=== PATIENT | male | born 1940 | race Caucasian/White ===

== ENCOUNTER → 2020-08-26 | Outpatient (CLI) | payer MEDICARE, OTHER ==
--- NOTE | 2020-08-26 12:46 | CT ---
EXAMINATION TYPE: CT angio thor/abd pel aorta DATE OF EXAM: 08/26/2020 COMPARISON: None. HISTORY: Abdominal Aortic aneurysm, without rupture CT DLP: 338.3 mGycm. Automated Exposure Control for Dose Reduction was Utilized. CONTRAST: CTA scan of the thorax, abdomen and pelvis is performed with IV Contrast, patient injected with 100 m L of Isovue 370. Aneurysm protocol with 3-D reconstruction images created on an independent workstati on and reviewed. FINDINGS: Vascular: Satisfactory enhancement of the central pulmonary arteries. Normal three-vessel origin from the aortic arch. Moderate mixed plaque in the thoracic aorta extending into branch vessels. Patent c eliac artery along with SMA that shows moderate narrowing approaching 50%. There is significant narro wing of the left renal artery at its origin due to prominent noncalcified plaque axial images 60 and 61 with reconstitution axial image 62, similar findings seen at origin of right renal artery. Patent GRAHAM not well seen. Moderate to severe plaque extends into the iliac arteries bilaterally where there is pain and left-sided stent graft, significant stenosis proximal right internal carotid artery great er than 50% noted axial image 86. There is moderate to severe plaque in the external iliac arteries b ilaterally with more mild to moderate plaque extending into the femoral arteries bilaterally and bran luke superficial and deep femoral arteries. There is infrarenal abdominal aortic aneurysm measuring 3.9 x 4.3 cm transversely axial image 74 with moderate surrounding peripheral noncalcified plaque. Le ngth of the aneurysm roughly 9 cm on sagittal image 22. Aneurysm does not extend into common iliac ar teries bilaterally. No Linear hypodensity to suggest aortic dissection. LUNGS: Mild chronic parenchymal changes otherwise lungs are clear. There is no concerning parenchymal mass or nodule identified. There is no pleural effusion or pneumothorax seen. The tracheobronchia l tree is patent. MEDIASTINUM: There are no greater than 1 cm hilar or mediastinal lymph nodes. Post-CABG changes with mediastinal clips and sternal wires. No cardiomegaly or pericardial effusion. LIVER/GB: Small dependent calcified gallstones. PANCREAS: No significant abnormality is seen. SPLEEN: No significant abnormality is seen. ADRENALS: Low dense thickening to both adrenal glands, left greater than right consistent with benign lipid rich hyperplasia. KIDNEYS: No significant abnormality is seen. BOWEL: No significant abnormality is seen. GENITAL ORGANS: Enlarged prostate gland consistent with BPH. LYMPH NODES: No greater than 1cm abdominal or pelvic lymph nodes are appreciated. OSSEOUS STRUCTURES: Osseous structures show mild to moderate multilevel spurring. Slight scoliotic cu rvature. There is some sclerosis and narrowing of the bilateral sacroiliac joints. There is moderate narrowing and mild to moderate spurring in both hip joints. OTHER: No significant additional abnormality is seen. IMPRESSION: There is roughly 9 cm length aneurysm of the mid to distal abdominal aorta measuring up t o 4.3 cm transversely. Significant stenosis at origin of bilateral renal arteries thought present. C jorge clinically for uncontrolled hypertension. There is significant stenosis in the right common iliac artery proximal portion. There is patent left common iliac artery stent graft. There is bilater al moderate to severe diffuse atherosclerotic change of the aorta and branch vessels.
== END | disposition home or self-care (01) ==
LOC: RADCTMAIN 10:36
PROVIDERS: ATTEND Internal Medicine Interventional Cardiology
DX: I71.4 Abdominal aortic aneurysm, without rupture (principal); I70.0 Atherosclerosis of aorta; I70.1 Atherosclerosis of renal artery; I70.201 Unspecified atherosclerosis of native arteries of extremities, right leg; Z95.828 Presence of other vascular implants and grafts
CPT/HCPCS: 82565; 84520; 71275; 36415; 74174; Q9967

== ENCOUNTER → 2020-12-22 | Day surgery (SDC) | payer OTHER ==
[2020-12-16 11:32] VITALS: BMI 22.1
[~2020-12-22] MED LIST: ALPRAZolam 0.25 MG TAB PO PRN; ALPRAZolam 0.5 MG TAB ONE; ALPRAZolam 0.5 MG TAB PO PRN; ASPIRIN 325 MG TAB PO STA; ASPIRIN 81 MG PO SCH; ATORVASTATIN 80 MG TAB PO SCH; CLOPIDOGREL 75 MG TAB PO ONE; CLOPIDOGREL 75 MG TAB PO SCH; HEPARIN SODIUM,PORCINE 10,000 UNIT in SODIUM CHLORIDE 0.9% 1,000 ML IRRIGATION PRN; HEPARIN SODIUM,PORCINE 2,500 UNIT in SODIUM CHLORIDE 0.9% 250 ML IRRIGATION PRN; IOPAMIDOL-250 100ML BTL INTRAARTER ONE; METOPROLOL TARTRATE 12.5 MG TAB PO SCH; NITROGLYCERIN SL TABS 0.4 MG TAB SUBLINGUAL PRN; SODIUM CHLORIDE 0.9% 1,000 ML in EMPTY BAG 1 BAG IV ONE; SODIUM CHLORIDE 0.9% 1,000 ML in EMPTY BAG 1 BAG IV SCH; VERAPAMIL SYRINGE (5 MG/10 ML) INTRAARTER ONE; amLODIPine 5 MG TAB PO SCH; fentaNYL (PF) 50 MCG/ML 2 ML AMP IV ONE; hydrALAZINE HCL 25 MG TAB PO SCH
[2020-12-22 06:57] VITALS: RESP 16; TEMP 97.8
[2020-12-22] MEDS: MIDAZOLAM 2 MG/2 ML VIAL IV ONE ×2 (07:51→08:23)
[2020-12-22] MEDS: LIDOCAINE 1% INJ 10MG/ML (20 ML MDV) SQ ONE ×2 (07:56→08:16)
--- NOTE | 2020-12-22 09:56 | IR ---
EXAMINATION TYPE: IR stent intravas non coronary DATE OF EXAM: 12/22/2020 COMPARISON: NONE HISTORY: Fluoroscopy time. Fluoroscopy was provided to the referring clinician.
--- NOTE | 2020-12-22 11:43 | AN ---
ANGIOGRAPHY REPORT DATE OF SERVICE: December 22, 2020. PERFORMING PHYSICIAN: Cody Infante MD. PROCEDURE PERFORMED: 1. Successful stenting of the right renal artery using 4.0 x 15 mm Xience drug-eluting stent with excellent angiographic results and reduction of stenosis from 90% to 0%. 2. Selective right renal artery angiogram. 3. An aortogram. INDICATION: Resistant hypertension in this 80-year-old gentleman who sees Dr. Messina in the office on a regular basis and who underwent recently a CTA and that showed critical disease involving the bilateral renal arteries. APPROACH: Right radial artery and right common femoral artery. COMPLICATION: None. LEVEL OF SEDATION: Moderate with sedation length of 45 minutes. PROCEDURE DESCRIPTION: After obtaining an informed consent, the patient was brought to the cardiac earth science laboratory technician. Initially I accessed the right renal artery and I placed a 45 cm sheath at the right radial artery, but unfortunately the sheath was short enough and we did not have a longer guide. Because of that, I aborted the right radial approach and I decided to go from the right groin. The right common femoral artery was cannulated using micropuncture technique and a micropuncture wire passed easily then I placed an 11 cm 6-Urdu sheath. After I pre- dilated using 5, 6, and 7-Urdu dilator. After that I placed a 6-Urdu 11 cm sheath at the right common femoral artery. Anticoagulation was achieved using heparin. Continuous ACT monitoring was performed throughout the procedure. After that I did engage the right renal artery using renal double curve catheter. The artery was wired using a run-through wire. Predilatation was performed using 3.5 x 15 mm balloon before I deployed 4.0 x 15 mm Xience drug-eluting stent where the stent was positioned under fluoroscopic guidance and deployed under fluoroscopic guidance. The following angiogram showed excellent angiographic results and the procedure was completed without any complication. POSTPROCEDURE MANAGEMENT: 1. Dual anti-platelet therapy. 2. Risk factor modifications. 3. Follow up with the patient. MMODL / IJN: [id number] /
[2020-12-22 14:41] VITALS: BP 138/64; PULSE 53
== END ==
LOC: CATHCVL 06:16
PROVIDERS: ATTEND Internal Medicine Interventional Cardiology
DX: I70.1 Atherosclerosis of renal artery (principal); I10 Essential (primary) hypertension; I25.10 Atherosclerotic heart disease of native coronary artery without angina pectoris; E78.5 Hyperlipidemia, unspecified; I73.9 Peripheral vascular disease, unspecified; Z95.1 Presence of aortocoronary bypass graft; Z98.890 Other specified postprocedural states; I71.4 Abdominal aortic aneurysm, without rupture; Z79.899 Other long term (current) drug therapy
CPT/HCPCS: 37236; 85347; C1887; C1769 ×7; C1725; C1894 ×2; C1874; J2250; J2001; J3010; J1644; Q9966

== ENCOUNTER → 2022-05-06 | Outpatient (CLI) | payer OTHER ==
--- NOTE | 2022-05-06 16:44 | US ---
EXAMINATION TYPE: US scrotum with doppler. Grayscale and color Doppler Duplex imaging performed of t he scrotum. DATE OF EXAM: 05/06/2022 COMPARISON: NONE CLINICAL HISTORY: N43.3 HYDROCELE. EXAM MEASUREMENTS: TESTICLES: Right Testicle: 3.5 x 1.7 x 3.0 cm Left Testicle: 4.3 x 2.7 x 3.1 cm EPIDIDYMIS HEAD: Right Epididymis: 0.9 cm Left Epididymis: 0.7 cm incidental 4mm thin-walled cyst Doppler performed to assess for testicular vascularity; good bilateral color flow and waveforms are s een. Hydrocele on left 4.3 x 1.8 x 3.7 Presence of varicoceles: no Satisfactory blood flow to both testicles. IMPRESSION: Confirmation of small left scrotal fluid collection or hydrocele.
== END | disposition home or self-care (01) ==
LOC: RADUSWWP 15:56
PROVIDERS: ATTEND Urology
DX: N43.3 Hydrocele, unspecified (principal)
CPT/HCPCS: 76870; 93975

== ENCOUNTER 2023-07-18 13:06 | Emergency (ER) | payer OTHER, MEDICARE ==
--- NOTE | 2023-07-18 13:17 | ED ---
General Adult HPI - General Source: patient, RN notes reviewed Mode of arrival: ambulatory Limitations: no limitations <Brando Garrett - Last Filed: 07/18/23 13:16> <Saadia Arauz - Last Filed: 07/18/23 15:20> - General Stated complaint: lower legs pain Time Seen by Provider: 07/18/23 13:16 - History of Present Illness Initial comments: 83-year-old male presents emergency [facility] from [facility] for [facility] extremity Doppler. Patient states he's been having cramping, charley horses of his lower extremity. He was sent to rule out DVT. Patient states that it's usually associated with exertional things. (Brando Garrett) - Related Data Home Medications Medication Instructions Recorded Confirmed Aspirin 81 mg PO DAILY 12/16/20 12/22/20 Atorvastatin Calcium [Lipitor] 80 mg PO HS 12/16/20 12/22/20 Metoprolol Tartrate [Lopressor] 12.5 mg PO DAILY 12/16/20 12/22/20 amLODIPine [Norvasc] 5 mg PO BID 12/16/20 12/22/20 hydrALAZINE HCL [Apresoline] 25 mg PO TID 12/16/20 12/22/20 Previous Rx's Medication Instructions Recorded Magnesium Oxide [Mag-Ox] 400 mg PO DAILY #30 tablet 07/18/23 Allergies Allergy/AdvReac Type Severity Reaction Status Date / Time lisinopril Allergy Swelling Verified 07/18/23 13:18 Review of Systems ROS Other: All systems not noted in ROS Statement are negative. <Brando Garrett - Last Filed: 07/18/23 13:16> ROS Other: All systems not noted in ROS Statement are negative. <Saadia Arauz - Last Filed: 07/18/23 15:20> ROS Statement: Those systems with pertinent positive or pertinent negative responses have been documented in the HPI. 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 hx carotid stenosis History of Any Multi-Drug Resistant Organisms: None Reported Past Surgical History: Coronary Bypass/CABG, Heart Catheterization Additional Past Surgical History / Comment(s): CABG 4 vessel,rt carotid endarterectomy Past Anesthesia/Blood Transfusion Reactions: No Reported Reaction Smoking Status: Former smoker - Past Family History Father Family Medical History: Cancer Mother Family Medical History: Cancer <Brando Garrett Josh - Last Filed: 07/18/23 13:16> General Exam <Brando Garrett - Last Filed: 07/18/23 13:16> - General Exam Comments Initial Comments: Visual Physical Exam Vital signs reviewed General: Well-appearing, nontoxic, no acute distress. Head: Normocephalic, atraumatic Eyes: PERRLA, EOMI ENT: Airway patent Chest: Nonlabored breathing Skin: No visual rash, normal skin tone Neuro: Alert and oriented 3 Musculoskeletal: No gross abnormalities (Brando Garrett) Course Vital Signs 07/18/23 13:14 Temperature 98 F Pulse Rate 60 Respiratory 16 Rate Blood Pressure 126/69 O2 Sat by Pulse 98 Oximetry Medical Decision Making <Brando Garrett Josh - Last Filed: 07/18/23 13:16> - Lab Data Result diagrams: 07/18/23 13:57 07/18/23 13:57 <Saadia Arauz - Last Filed: 07/18/23 15:20> - Medical Decision Making I performed a quick note portion of this chart signed Brando Garrett PA-C (Brando Garrett) - Lab Data Lab Results 07/18/23 07/18/23 Range/Units 13:57 13:57 WBC 6.9 (3.8-10.6) k/uL RBC 4.50 (4.30-5.90) m/uL Hgb 14.8 (13.0-17.5) gm/dL Hct 43.5 (39.0-53.0) % MCV 96.8 (80.0-100.0) fL MCH 32.9 (25.0-35.0) pg MCHC 33.9 (31.0-37.0) g/dL RDW 12.2 (11.5-15.5) % Plt Count 236 (150-450) k/uL MPV 8.0 Neutrophils % 71 % Lymphocytes % 20 % Monocytes % 5 % Eosinophils % 2 % Basophils % 1 % Neutrophils # 4.8 (1.3-7.7) k/uL Lymphocytes # 1.3 (1.0-4.8) k/uL Monocytes # 0.4 (0-1.0) k/uL Eosinophils # 0.2 (0-0.7) k/uL Basophils # 0.0 (0-0.2) k/uL Sodium 141 (137-145) mmol/L Potassium 5.5 H (3.5-5.1) mmol/L Chloride 108 H (98-107) mmol/L Carbon Dioxide 22 (22-30) mmol/L Anion Gap 11 mmol/L BUN 16 (9-20) mg/dL Creatinine 1.09 (0.66-1.25) mg/dL Est GFR (CKD-EPI)AfAm 73 (>60 ml/min/1.73 sqM) Est GFR (CKD-EPI)NonAf 63 (>60 ml/min/1.73 sqM) Glucose 101 H (74-99) mg/dL Calcium 9.9 (8.4-10.2) mg/dL Total Bilirubin 1.0 (0.2-1.3) mg/dL AST 34 (17-59) U/L ALT 27 (4-49) U/L Alkaline Phosphatase 71 (38-126) U/L Total Protein 7.4 (6.3-8.2) g/dL Albumin 4.6 (3.5-5.0) g/dL Disposition <Brando Garrett - Last Filed: 07/18/23 13:16> Is patient prescribed a controlled substance at d/c from ED?: No Time of Disposition: 15:19 <Saadia Arauz - Last Filed: 07/18/23 15:20> Clinical Impression: Leg cramps Disposition: HOME SELF-CARE Condition: Stable Instructions (If sedation given, give patient instructions): Leg Cramps (ED) Additional Instructions: Please take the magnesium supplement daily. Follow-up with your primary care doctor. Recommend ABIs. Return for any new or worsening symptoms Prescriptions: Magnesium Oxide [Mag-Ox] 400 mg PO DAILY #30 tablet Referrals: [facility],Clinic [Primary Care Provider] - 1-2 days John Somers DO [Doctor of Osteopathic Medicine] - 1-2 days
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
[2023-07-18 14:44] LABS: Basophils % (A) 1 %; Eosinophils # (A) 0.2 k/uL (0-0.7); Eosinophils % (A) 2 %; HCT 43.5 % (39.0-53.0); HGB 14.8 gm/dL (13.0-17.5); Lymphocytes # (A) 1.3 k/uL (1.0-4.8); Lymphocytes % (A) 20 %; MCH 32.9 pg (25.0-35.0); MCHC 33.9 g/dL (31.0-37.0); MCV 96.8 fL (80.0-100.0); Monocytes # (A) 0.4 k/uL (0-1.0); Monocytes % (A) 5 %; Neutrophils # (A) 4.8 k/uL (1.3-7.7); Neutrophils % (A) 71 %; Platelet Count 236 k/uL (150-450); RDW 12.2 % (11.5-15.5); WBC 6.9 k/uL (3.8-10.6)
[2023-07-18 14:54] LABS: ALT 27 U/L (4-49); AST 34 U/L (17-59); African American GFR (CKD) 73 (>60 ml/min/1.73 sqM); Albumin 4.6 g/dL (3.5-5.0); Alkaline Phosphatase 71 U/L (38-126); Anion Gap 11 mmol/L; Blood Urea Nitrogen 16 mg/dL (9-20); Calcium 9.9 mg/dL (8.4-10.2); Carbon Dioxide 22 mmol/L (22-30); Chloride 108 mmol/L (98-107); Glucose 101 mg/dL (74-99); Non-African American GFR(CKD) 63 (>60 ml/min/1.73 sqM); Potassium 5.5 mmol/L (3.5-5.1); Sodium 141 mmol/L (137-145); Total Protein 7.4 g/dL (6.3-8.2)
[2023-07-18 15:57] VITALS: BP 158/81; PULSE 66; RESP 18; TEMP 97.8
== END 2023-07-18 15:41 | disposition home or self-care (01) ==
LOC: EC 13:06
DX: R25.2 Cramp and spasm (principal); I10 Essential (primary) hypertension; I25.10 Atherosclerotic heart disease of native coronary artery without angina pectoris; E78.5 Hyperlipidemia, unspecified; Z79.82 Long term (current) use of aspirin; Z79.899 Other long term (current) drug therapy; Z88.8 Allergy status to other drugs, medicaments and biological substances; Z95.5 Presence of coronary angioplasty implant and graft; Z87.891 Personal history of nicotine dependence
CPT/HCPCS: 36415; 80053; 85025; 93970; 99284

== ENCOUNTER → 2024-10-04 | Outpatient (CLI) | payer OTHER ==
[2024-10-04 07:48] LABS: African American GFR (CKD) 66 (>60 ml/min/1.73 sqM); Blood Urea Nitrogen 20 mg/dL (9-20); Non-African American GFR(CKD) 57 (>60 ml/min/1.73 sqM)
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
== END | disposition home or self-care (01) ==
LOC: RADCTMAIN 06:53
PROVIDERS: ATTEND Surgery
DX: I71.43 Infrarenal abdominal aortic aneurysm, without rupture (principal); I70.213 Atherosclerosis of native arteries of extremities with intermittent claudication, bilateral legs; I70.0 Atherosclerosis of aorta; K80.20 Calculus of gallbladder without cholecystitis without obstruction; K57.30 Diverticulosis of large intestine without perforation or abscess without bleeding; I70.8 Atherosclerosis of other arteries
CPT/HCPCS: 75635; 82565; 84520

== ENCOUNTER 2025-01-04 11:30 | Inpatient (IN) | payer OTHER ==
[2025-01-02 13:20] VITALS: BMI 23.3
[2025-01-07] MEDS ORDERED: HYDROmorphone 0.5 MG/0.5 ML SYRINGE IVP PRN (05:49)
[2025-01-07] MEDS ORDERED: LIDOCAINE 1% (10MG/ML) FOR IV START INTRADERMA PRN (05:49)
[2025-01-07] MEDS ORDERED: fentaNYL (PF) 50 MCG/ML 2 ML AMP IVP PRN (05:49)
[2025-01-07] MEDS ORDERED: MIDAZOLAM 2 MG/2 ML VIAL IV PRN (05:49)
[2025-01-07] MEDS: LACTATED RINGERS 1,000 ML IV SCH (06:31)
[2025-01-07] MEDS: DEXAMETHASONE SOD PHOSPHATE 4 MG/ML 1 ML VIAL IV ONE (06:32)
[2025-01-07] MEDS: ONDANSETRON 4 MG/2 ML VIAL IVP ONE (06:32)
[2025-01-07] MEDS: IV FLUID CONTINUATION 1,000 ML IV ONE ×4 (06:46→12:10)
[2025-01-07 06:57] LABS: Partial Thromboplastin Time 22.9 sec (22.0-30.0); Prothrombin Time 10.9 sec (10.0-12.5)
[2025-01-07 06:59] LABS: ALT 16 U/L (4-49); AST 21 U/L (17-59); African American GFR (CKD) 75 (>60 ml/min/1.73 sqM); Albumin 4.1 g/dL (3.5-5.0); Alkaline Phosphatase 85 U/L (38-126); Anion Gap 11 mmol/L; Blood Urea Nitrogen 21 mg/dL (9-20); Calcium 9.8 mg/dL (8.4-10.2); Carbon Dioxide 22 mmol/L (22-30); Chloride 106 mmol/L (98-107); Glucose 102 mg/dL (74-99); Non-African American GFR(CKD) 65 (>60 ml/min/1.73 sqM); Potassium 3.8 mmol/L (3.5-5.1); Sodium 139 mmol/L (137-145); Total Bilirubin 0.6 mg/dL (0.2-1.3); Total Protein 6.4 g/dL (6.3-8.2)
[2025-01-07 07:15] LABS: Basophils # (A) 0.05 10*3/uL (0.00-0.10); Basophils % (A) 0.8 %; Eosinophils # (A) 0.12 10*3/uL (0.04-0.35); HCT 37.8 % (39.6-50.0); HGB 13.4 g/dL (13.0-17.0); Lymphocytes # (A) 1.53 10*3/uL (0.90-5.00); Lymphocytes % (A) 25.9 %; MCH 32.4 pg (27.0-32.0); MCHC 35.4 g/dL (32.0-37.0); MCV 91.5 fL (80.0-97.0); Mean Platelet Volume 9.5 fL (9.5-12.2); Monocytes # (A) 0.53 10*3/uL (0.20-1.00); Neutrophils # (A) 3.66 10*3/uL (1.80-7.70); Platelet Count 216 10*3/uL (140-440); RBC 4.13 10*6/uL (4.40-5.60); RDW 12.2 % (11.5-14.5); WBC 5.91 10*3/uL (4.50-10.00)
--- NOTE | 2025-01-07 07:21 | P.HPIHPCON ---
History of Present Illness H&P Date: 01/07/25 Chief Complaint: Right calf claudication Patient is an 84-year-old male who presented with complaints of bilateral lower extremity claudication which was extremely lifestyle limiting for him. He leads an active life golfing and participating in many other activities. He had undergone workup for this which included physical examination demonstrating femoral pulses to be intact while the popliteal, DP and PT pulses were absent on the right. Arterial Doppler had been performed which demonstrated significantly decreased ankle-brachial index. CAT scan angiogram also was performed which demonstrated high-grade right iliac artery stenosis in conjunction with the right femoral artery stenosis. He did undergo balloon dilation and stent placement which resolved the right iliac artery issue however continues to claudicate and in fact continues to experience some discomfort nocturnally in the right foot. Because of his symptoms and the length of the femoral artery oc clusion patient is now offered surgical bypass as it is not thought he is a good percutaneous revascularization candidate. Consent for Procedure: I have explained the operation/procedure to the patient, including the risks, benefits, side effects, alternative therapies (including not receiving the proposed treatment or service), the likelihood of the patient achieving his/her goals, and potential recuperation problems for the procedure/sedation/analgesia, as well as any blood products, if indicated. I also explained to the patient the risks, benefits and side effects of the alternatives, as well as the risks related to not receiving the proposed procedure, care, treatment, or services. - EENT Ears: bilateral: decreased hearing - Cardiovascular Cardiovascular: Reports claudication, Reports high blood pressure - Genitourinary (Male) Genitourinary: Reports erectile dysfunction Past Medical History Past Medical History: Coronary Artery Disease (CAD), Hearing Disorder / Deafness, Hyperlipidemia, Hypertension, Myocardial Infarction (NC), Osteoarthritis (OA), Vascular Disorder Additional Past Medical History / Comment(s): Hx Malaria when in [place]. Bilateral hearing aids - does not wear them. Last Myocardial Infarction Date:: 1983 History of Any Multi-Drug Resistant Organisms: None Reported Past Surgical History: Coronary Bypass/CABG, Heart Catheterization Additional Past Surgical History / Comment(s): CABG 4 vessel, right carotid endarterectomy, stent in right leg, renal artery stent. Past Anesthesia/Blood Transfusion Reactions: No Reported Reaction Additional Past Anesthesia/Blood Transfusion Reaction / Comment(s): No hx of blood transfusion to date. Smoking Status: Former smoker - Past Family History Father Family Medical History: Cancer Mother Family Medical History: Cancer Brother(s) Family Medical History: Cancer Medications and Allergies Home Medications Medication Instructions Recorded Confirmed Type Aspirin 81 mg PO HS 12/16/20 01/07/25 History Atorvastatin Calcium [Lipitor] 80 mg PO HS 12/16/20 01/07/25 History Metoprolol Tartrate [Lopressor] 12.5 mg PO QAM 12/16/20 01/07/25 History Acetaminophen/Diphenhydramine 2 tab PO HS 10/17/24 01/07/25 History [Tylenol PM 500-25mg] Losartan [Cozaar] 50 mg PO HS 10/17/24 01/07/25 History Acetaminophen [Tylenol 8 Hour] 2 tab PO HS 01/02/25 01/07/25 History Tamsulosin HCl [Flomax] 0.4 mg PO QAM 01/02/25 01/07/25 History amLODIPine BESYLATE 5 mg PO QAM 01/02/25 01/07/25 History Allergies Allergy/AdvReac Type Severity Reaction Status Date / Time lisinopril Allergy Swelling Verified 01/07/25 06:00 Surgical - Exam Osteopathic Statement: *. No significant issues noted on an osteopathic structural exam other than those noted in the History and Physical/Consult. Vital Signs Temp Pulse Resp BP Pulse Ox 97.7 F 48 L 18 173/81 98 01/07/25 06:17 01/07/25 06:17 01/07/25 06:17 01/07/25 06:17 01/07/25 06:17 Patient Seen Date: 01/07/25 Patient Seen Time: 07:00 - General well developed, well nourished, no distress - Neck no masses, no bruits - Respiratory normal expansion, normal respiratory effort, clear to auscultation - Cardiovascular Rhythm: regular - Abdomen Abdomen: soft, non tender - Integumentary no rash, no growths - Neurologic normal coordination (Femoral pulses noted on the right while the popliteal, DP and PT pulses are absent on the right. There is no open wound or leg edema on the right. Toes are movable.), normal sensation Results - Labs 01/07/25 06:00 Abnormal Lab Results - Last 24 Hours (Table) 01/07/25 Range/Units 06:00 BUN 21 H (9-20) mg/dL Glucose 102 H (74-99) mg/dL Diabetes panel 01/07/25 Range/Units 06:00 Sodium 139 (137-145) mmol/L Potassium 3.8 (3.5-5.1) mmol/L Chloride 106 (98-107) mmol/L Carbon Dioxide 22 (22-30) mmol/L BUN 21 H (9-20) mg/dL Creatinine 1.07 (0.66-1.25) mg/dL Glucose 102 H (74-99) mg/dL Calcium 9.8 (8.4-10.2) mg/dL AST 21 (17-59) U/L ALT 16 (4-49) U/L Alkaline Phosphatase 85 (38-126) U/L Total Protein 6.4 (6.3-8.2) g/dL Albumin 4.1 (3.5-5.0) g/dL Calcium panel 01/07/25 Range/Units 06:00 Calcium 9.8 (8.4-10.2) mg/dL Albumin 4.1 (3.5-5.0) g/dL Pituitary panel 01/07/25 Range/Units 06:00 Sodium 139 (137-145) mmol/L Potassium 3.8 (3.5-5.1) mmol/L Chloride 106 (98-107) mmol/L Carbon Dioxide 22 (22-30) mmol/L BUN 21 H (9-20) mg/dL Creatinine 1.07 (0.66-1.25) mg/dL Glucose 102 H (74-99) mg/dL Calcium 9.8 (8.4-10.2) mg/dL Adrenal panel 01/07/25 Range/Units 06:00 Sodium 139 (137-145) mmol/L Potassium 3.8 (3.5-5.1) mmol/L Chloride 106 (98-107) mmol/L Carbon Dioxide 22 (22-30) mmol/L BUN 21 H (9-20) mg/dL Creatinine 1.07 (0.66-1.25) mg/dL Glucose 102 H (74-99) mg/dL Calcium 9.8 (8.4-10.2) mg/dL Total Bilirubin 0.6 (0.2-1.3) mg/dL AST 21 (17-59) U/L ALT 16 (4-49) U/L Alkaline Phosphatase 85 (38-126) U/L Total Protein 6.4 (6.3-8.2) g/dL Albumin 4.1 (3.5-5.0) g/dL - Imaging Comments: CAT scan angiogram of the abdominal and pelvic cavities as well as the lower extremities are reviewed. 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 2: Carotid stenosis. 3: Coronary artery disease/preop coronary artery bypass grafting. 4: Hyperlipidemia. 5: Hypertension. Plan: 1: Surgical revascularization right lower extremity in the form of femoral- popliteal bypass graft utilizing CryoVein as the patient's great saphenous system on the right has been previously harvested for cardiac bypass purposes. Time with Patient: Less than 30
[2025-01-07] MEDS ORDERED: NEOSTIGMINE 1 MG/ML 10 ML VIAL ONE (07:25)
[2025-01-07] MEDS ORDERED: MIDAZOLAM 2 MG/2 ML VIAL ONE (07:25)
[2025-01-07] MEDS ORDERED: fentaNYL (PF) 50 MCG/ML 2 ML AMP ONE (07:25)
[2025-01-07] MEDS ORDERED: PHENYLEPHRINE 10 MG/ML VIAL ONE (07:25)
[2025-01-07] MEDS ORDERED: PROPOFOL 10 MG/ML 20 ML VIAL IV ONE (07:25)
[2025-01-07] MEDS ORDERED: ROCURONIUM 10 MG/ML (5 ML VIAL) IV ONE (07:25)
[2025-01-07] MEDS ORDERED: HEPARIN SODIUM,PORCINE 10,000 UNIT/ML 1 ML VIAL ONE (07:25)
[2025-01-07] MEDS ORDERED: GLYCOPYRROLATE 0.2 MG/ML 2 ML VIAL ONE (07:25)
[2025-01-07] MEDS ORDERED: ePHEDrine 50 MG/ML 1 ML VIAL ONE (07:25)
[2025-01-07] MEDS ORDERED: LIDOCAINE 1% INJ 10MG/ML (20 ML MDV) ONE (07:25)
[2025-01-07] MEDS ORDERED: SUCCINYLCHOLINE CHLORIDE 200 MG/10 ML VIAL IV ONE (07:25)
[2025-01-07] MEDS: ceFAZolin 2 GM in DEXTROSE 5% IN WATER 50 ML IVPB PRN (07:30)
[2025-01-07] MEDS: THROMBIN (BOVINE) 5,000 UNIT VIAL TOPICAL ONE (08:16)
[2025-01-07] MEDS: HEPARIN SODIUM,PORCINE 10,000 UNIT in SODIUM CHLORIDE 0.9% 1,000 ML IRRIGATION ONE (08:32)
[2025-01-07] MEDS: ceFAZolin 4 GM in SODIUM CHLORIDE 0.9% 1,000 ML IRRIGATION ONE (08:33)
[2025-01-07] MEDS: DEXTROSE 5%-LACTATED RINGERS 1,000 ML IV ONE (08:38)
[2025-01-07] MEDS ORDERED: MORPHINE SULFATE 2 MG/ML SYRINGE IVP PRN (10:35)
[2025-01-07] MEDS ORDERED: MAG HYDROX/AL HYDROX/SIMETH 30 ML CUP PO PRN (10:35)
--- NOTE | 2025-01-07 10:35 | P.OP ---
Date of Procedure: 01/07/25 Preoperative Diagnosis: 1: Right superficial femoral artery occlusion. 2: Severe right common femoral stenosis. 3: Severely lifestyle limiting right calf claudication secondary to above. Postoperative Diagnosis: Same. Procedure(s) Performed: 1: Right common femoral thromboendarterectomy. 2: Right femoral to popliteal bypass graft utilizing cryopreserved vein. 3: Application of Prevena. 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 Because of his symptoms the patient is offered revascularization. He is not considered a good atherectomy candidate due to the multilevel disease he presents with. The procedure of a right femoral-popliteal bypass graft and thromboendarterectomy were discussed with the patient. All questions were answered to patient satisfaction. Consent form was signed. Description of Procedure: Patient was brought the op room placed in supine position administered general endotracheal anesthesia administered by the department of anesthesiology. Patient received intravenously administered prophylactic antibiotics in the perioperative phase. The right lower extremity sterilely prepped and draped in the usual manner after Barroso catheter been placed to gravity drainage. An incision in the right inguinal area was made carried down through the subcutaneous tissues. Hemostasis was achieved using electrocautery. Lymphatic layer was divided laterally and swept medially exposing the femoral sheath. The origin of the common femoral as well as the profundus and superficial femoral arteries were identified and dissected free of investing tissues and each were then encircled with a vessel loop. The artery itself was heavily calcified. Antibiotic soaked gauze was then placed within the wound. Attention was turned to the medial aspect of the leg at the lower popliteal/proximal calf area. Skin incision was made linearly in this area and carried down through the subcutaneous tissues. Hemostasis was achieved using electrocautery. The incision was deepened into the popliteal space. The popliteal vein as well as the popliteal artery and nerve were identified and the artery was dissected free of investing tissues and encircled with Vesseloops. The artery was felt soft enough for outflow purposes. A subsartorial tunnel was created with the tunneling device through which a cryopreserved vein which had previously been checked for leaks and none were found. The vein had been marked to avoid any twisting. It was then tunneled between the 2 incisions with the aid of the tunneler. The patient was then systemically heparinized and ACT's were drawn indicating the patient was adequately heparinized. The Vesseloops surrounding the profundus and superficial femoral arteries were drawn closed. Due to the heavily calcified nature of the proximal common femoral artery clamping was necessary. Longitudinal arteriotomy was made and extended to the origin of the profundus and superficial femoral segments. Thromboendarterectomy was performed. Significant plaquing was also identified in the origin of the profundus. Retraction endarterectomy was performed in the profundus vessel and once performed excellent backbleeding was noted. The thromboendarterectomy was then completed and remaining luminal surface was inspected for any loose or free-floating material. This was removed where identified. The vein was oriented properly and then spatulated to match the arteriotomy. End-to-side anastomosis was completed utilizing 6-0 Prolene placed in a running fashion. Just prior to completion of the anastomotic line the [place] arterial system was flushed and no thrombus was retrieved. The anastomotic line was completed flow was then restored through the [place] system with resulting excellent pulsatile flow at the distal end of the bypass graft as well as a palpable pulse in the profundus segment. The wound was then packed with antibiotic soaked gauze. Attention was turned to the popliteal area incision. The Vesseloops surrounding the popliteal artery were drawn closed in longitudinal arteriotomy was created and extended with Montaño Craig scissors. Backbleeding was identified. The artery was flushed with heparinized saline solution. The vein was oriented properly and cut to the appropriate length and then spatulated. End-to-side anastomosis between the artery and the vein graft was completed with 6-0 Prolene suture. Just prior to completion anastomotic line backbleeding was allowed to occur and the artery was flushed and no thrombus was retrieved. The anastomotic line was then completed and flow restored through the vein graft into the [place] system. Hand-held continuous-wave Doppler was utilized to confirm excellent flow through the vein graft into the [place] arterial system. Both wounds were evaluated for hemostasis and then irrigated with antibiotic- containing solution. Deep tissues were closed with Vicryl and dermis was closed with 4-0 Monocryl placed in running intradermal fashion. Prevena was placed over the right inguinal incision. The patient's foot was noted to be pink in color throughout. With the above findings noted the patient was awakened and transferred to the recovery area in satisfactory and stable condition.
[2025-01-07] MEDS ORDERED: SODIUM CHLORIDE 0.9% 1,000 ML IV SCH (10:45)
[2025-01-07] MEDS: HYDROcodone/APAP 5-325MG 1 EACH TAB PO PRN (19:45)
--- NOTE | 2025-01-08 08:47 | P.CONS ---
History of Present Illness - Reason for Consult Consult date: 01/08/25 Medical Management Requesting physician: John Somers - History of Present Illness Hospital course: Patient is a pleasant 84-year-old male with a past medical history of CAD status post CABG x 4, hypertension, hyperlipidemia, carotid stenosis status post carotid endarterectomy, peripheral vascular disease status post stenting of right leg and renal artery stent placement, and hearing loss. Patient is currently admitted under vascular surgery team and underwent right common femoral thromboendarterectomy with right femoral to popliteal bypass graft utilizing cryopreserved vein and application of Prevena wound VAC on 01/07/2025. Patient was seen and fully evaluated in room 372. He is postoperative day 1. He reports mild discomfort but reports pain in right lower extremity has improved since completion of surgical procedure. Patient currently denies having any other complaints at this time. Barroso catheter was removed this morning and patient has not yet urinated. Patient encouraged to notify RN once he is able to urinate and to be evaluated by PT/OT. Patient denies having any headache, lightheadedness, dizziness, chest pain, palpitations, shortness of breath, or experiencing any numbness/tingling in his lower extremities Physical exam: Vital signs reviewed and stable. General: Nontoxic, no distress and appears stated age. Derm: Skin warm and dry, normal coloration for ethnicity. Head: Atraumatic, normocephalic and symmetric. Eyes: EOM's intact, no lid lag, and anicteric sclera Mouth: no lip lesions, mucus membranes moist Cardiovascular: regular rate and rhythm with normal S1S2, systolic murmur, positive posterior tibial pulses bilaterally, and cap refill < 2 seconds. Prevena Wound VAC in place right groin, no surrounding erythema or hematoma noted. Dressing in place right medial lower leg, clean, dry, and intact. Lungs: Respirations even, regular, and unlabored on room air. Lungs CTA bilaterally, no rhonchi, no rales, no wheezing, and no accessory muscle usage. Abdominal: soft, nontender to palpation, no guarding, no appreciable organomegaly Ext: ROM intact. No gross muscle atrophy, no edema, no contractures Neuro: Speech clear, face symmetrical and CN II-XII grossly intact with no noted focal neuro deficits Psych: Alert and oriented to person, place, time, and situation. Appropriate and pleasant affect. Assessment and Plan of Care: Status post right common femoral thromboendarterectomy with right femoral to popliteal bypass graft utilizing cryopreserved vein and application of Prevena wound VAC Peripheral vascular disease -Management per primary admitting vascular surgery team including DVT prophylaxis, pain management, management of wound VAC, advancement of activity, and PT/OT. -Continue dual antiplatelet therapy with aspirin 81 mg daily and Plavix 75 mg daily along with atorvastatin 80 mg nightly. -Symptomatic care and pain management. -Telemetry monitoring -PT/OT following, recommending home with home care. Required documents completed for [place] home care. - Discussed plan of care with vascular surgery WIRE MILL OPERATOR. History of CAD status post CABG x 4 Hypertension Hyperlipidemia Carotid stenosis status post carotid endarterectomy -Continue cardiac medication regimen with amlodipine 5 mg daily, aspirin 81 mg daily, atorvastatin 80 mg nightly, Plavix 75 mg daily, losartan 50 mg nightly, and metoprolol 12.5 mg daily. BPH -Monitor urinary output and for any signs of urinary retention. Continue Flomax 0.4 mg daily. Data and imaging reviewed: -Labs reviewed. CBC showing no significant abnormalities. Coagulation profile normal findings. BMP showing mild prerenal azotemia with BUN of 21 otherwise normal findings. Blood glucose 102. Liver profile unremarkable. Calcium 9.8. -Reviewed operative report. -Vital signs reviewed. Blood pressure 168/74, heart rate 70, respiratory rate 16, temp 97.8 F, and SpO2 of 97% on room air. Thank you for allowing us to participate in the care of this pleasant patient. Do not hesitate to contact us with questions. Someone can be reached from the [facility] hospitalist group all hours of the day at [phone] or via [employer]. Patient was seen independently by Nurse Pracitioner. This document was prepared using Mark[employer] dictation software. Please allow for errors in focusing machine operator, while rare they do occur. Hilario Spain NP rendered care for this patient independently, reviewed the findings and plan as documented in the note above and agree with plan. I did not physically speak with or examine the patient on this date. Past Medical History Past Medical History: Coronary Artery Disease (CAD), Hearing Disorder / Deafness, Hyperlipidemia, Hypertension, Myocardial Infarction ([place]), Osteoarthritis (OA), Vascular Disorder Additional Past Medical History / Comment(s): Hx Malaria when in [place]. Bilateral hearing aids - does not wear them. Last Myocardial Infarction Date:: 1983 History of Any Multi-Drug Resistant Organisms: None Reported Past Surgical History: Coronary Bypass/CABG, Heart Catheterization Additional Past Surgical History / Comment(s): CABG 4 vessel, right carotid endarterectomy, stent in right leg, renal artery stent. Past Anesthesia/Blood Transfusion Reactions: No Reported Reaction Additional Past Anesthesia/Blood Transfusion Reaction / Comm: No hx of blood transfusion to date. Smoking Status: Former smoker - Past Family History Father Family Medical History: Cancer Mother Family Medical History: Cancer Brother(s) Family Medical History: Cancer Medications and Allergies Home Medications Medication Instructions Recorded Confirmed Type Aspirin 81 mg PO HS 12/16/20 01/07/25 History Atorvastatin Calcium [Lipitor] 80 mg PO HS 12/16/20 01/07/25 History Metoprolol Tartrate [Lopressor] 12.5 mg PO QAM 12/16/20 01/07/25 History Acetaminophen/Diphenhydramine 2 tab PO HS 10/17/24 01/07/25 History [Tylenol PM 500-25mg] Losartan [Cozaar] 50 mg PO HS 10/17/24 01/07/25 History Acetaminophen [Tylenol 8 Hour] 2 tab PO HS 01/02/25 01/07/25 History Tamsulosin HCl [Flomax] 0.4 mg PO QAM 01/02/25 01/07/25 History amLODIPine BESYLATE 5 mg PO QAM 01/02/25 01/07/25 History Allergies Allergy/AdvReac Type Severity Reaction Status Date / Time lisinopril Allergy Swelling Verified 01/07/25 06:00 Physical Exam Vitals: Vital Signs Temp Pulse Pulse Resp BP BP Pulse Ox 01/08/25 04:00 78 16 169/70 97 01/08/25 01:38 14 01/07/25 23:46 72 14 146/69 96 01/07/25 20:00 97.3 F L 77 77 14 183/80 98 01/07/25 18:25 97.7 F 68 16 176/81 98 01/07/25 17:30 78 18 158/76 97 01/07/25 17:00 72 18 160/71 97 01/07/25 15:30 68 18 153/72 99 01/07/25 14:30 74 18 151/71 99 01/07/25 13:30 68 18 162/70 99 01/07/25 13:00 69 18 158/70 97 01/07/25 12:30 67 18 178/70 148/67 98 01/07/25 12:00 72 18 176/58 149/70 98 01/07/25 11:35 76 18 187/62 147/58 97 01/07/25 11:20 72 18 179/60 149/67 98 01/07/25 11:05 71 18 176/62 155/68 97 01/07/25 10:50 70 18 171/59 147/65 97 01/07/25 10:35 97.3 F L 78 12 150/76 146/73 100 Intake and Output 01/07/25 01/08/25 01/08/25 22:59 06:59 14:59 Intake Total 360 118 Output Total 200 1600 Balance -200 -1240 118 Intake: Oral 360 118 Output: Urine 200 1600 Uretheral (Barroso) 800 Other: Voiding Method Indwelling Catheter Indwelling Catheter Weight 66.2 kg Results CBC & Chem 7: 01/07/25 06:00 01/07/25 06:00
[2025-01-08] MEDS: METOPROLOL TARTRATE 12.5 MG TAB PO SCH (09:12)
[2025-01-08] MEDS: CLOPIDOGREL 75 MG TAB PO SCH (09:13)
[2025-01-08] MEDS: TAMSULOSIN 0.4 MG CAP.ER.24H PO SCH (09:13)
[2025-01-08] MEDS: DOCUSATE 100 MG CAP PO SCH (09:13)
[2025-01-08] MEDS: ASPIRIN 81 MG PO SCH (09:13)
[2025-01-08] MEDS: amLODIPine 5 MG TAB PO SCH (09:13)
--- NOTE | 2025-01-08 12:37 | P.DS ---
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 Revascularization was offered to the patient and yesterday he underwent right common femoral thromboendarterectomy and right femoral to popliteal bypass graft with cryopreserved vein. Application of Prevena dressing to the right groin. He is postop day #1 today. He states he has no pain. He took 1 pain pill through the night. Barroso catheter has been discontinued. Vital signs have been stable. Physical therapy on consultation, patient has been up and ambulated in the hallway. Pain has been well controlled. He has voided on his own. He denies any shortness of breath or chest pain. He has been afebrile. Prevena wound VAC in place to right groin. Patient stating he would like to go home today. 01/09/2025 Patient is seen and examined today as a follow-up. He is postop day number 2 for right common femoral thromboendarterectomy and right femoral to popliteal bypass graft with CryoVein. Patient wanted to be discharged yesterday initially however his family requested that he stay overnight for further pain management. He states pain is well controlled. He has been up and ambulating in the hallway. Denies any shortness of breath, chest pain, abdominal pain nausea or vomiting. Improved pain in the right lower extremity. Prevena wound VAC to right groin with good suction. Medial surgical incision well-approximated, no active bleeding. Patent bypass, PT and DP Doppler signal obtained. Exam General appearance: The patient is alert, oriented, appears in no acute distress. HET: Head is normocephalic and atraumatic. Pupils are equal and reactive. Neck: Supple. Heart: Regular. Lungs: Equal expansion, normal respiratory effort. Abdomen: Soft, nontender, nondistended. Extremities: Normal skin color and turgor. Right groin with Prevena wound VAC in place with good suction. Surgical incision right lower extremity well- approximated without any active bleeding. PT DP and bypass graft signal present. Neurological: No focal deficits. Strength and sensation are grossly intact. Assessment 1. Postop day #2 for right common femoral artery thromboendarterectomy and right femoral to popliteal bypass graft with CryoVein 2. Right superficial femoral artery occlusion with severe right common femoral stenosis 3. Severely lifestyle limiting right calf claudication secondary to above 4. Coronary artery disease with history of CABG and heart catheterization Plan 1. Physical therapy consulted for evaluation. Patient was seen and evaluated. Cleared safe for discharge home. 2. Medical team consulted for medical management 3. Encourage ambulation 4. Discharge instructions reviewed with patient and his daughter 5. Keep Prevena wound VAC in place until 01/13/2025 then may be discontinued and discarded 6. Case management following, setting up for home health long term health care on discharge 7. Plan for discharge today. Follow-up appointment already scheduled for 01/24/2025. The impression and plan of care has been dictated as directed. Dr. Barroso I performed a history and examination of this patient, discussed the same with the dictator. I agree with the dictator's note ,documented as a scribe. Any additional findings or plans will be noted. Procedures: Procedure(s) Performed: 1: Right common femoral thromboendarterectomy. 2: Right femoral to popliteal bypass graft utilizing cryopreserved vein. 3: Application of Prevena. Patient Condition at Discharge: Stable Plan - Discharge Summary Discharge Rx Participant: No New Discharge Prescriptions: New HYDROcodone/APAP 5-325MG [Wilber 5-325] 1 each PO Q4HR PRN #10 tab PRN Reason: Moderate Pain (Scale 4 To 6) Clopidogrel [Plavix] 75 mg PO DAILY #30 tab Continue Atorvastatin Calcium [Lipitor] 80 mg PO HS Losartan [Cozaar] 50 mg PO HS amLODIPine BESYLATE 5 mg PO QAM Acetaminophen [Tylenol 8 Hour] 2 tab PO HS Aspirin 81 mg PO HS Metoprolol Tartrate [Lopressor] 12.5 mg PO QAM Acetaminophen/Diphenhydramine [Tylenol PM 500-25mg] 2 tab PO HS Tamsulosin HCl [Flomax] 0.4 mg PO QAM Discharge Medication List Aspirin 81 mg PO HS 12/16/20 [History] Atorvastatin Calcium [Lipitor] 80 mg PO HS 12/16/20 [History] Metoprolol Tartrate [Lopressor] 12.5 mg PO QAM 12/16/20 [History] Acetaminophen/Diphenhydramine [Tylenol PM 500-25mg] 2 tab PO HS 10/17/24 [History] Losartan [Cozaar] 50 mg PO HS 10/17/24 [History] Acetaminophen [Tylenol 8 Hour] 2 tab PO HS 01/02/25 [History] Tamsulosin HCl [Flomax] 0.4 mg PO QAM 01/02/25 [History] amLODIPine BESYLATE 5 mg PO QAM 01/02/25 [History] Clopidogrel [Plavix] 75 mg PO DAILY #30 tab 01/08/25 [Rx] HYDROcodone/APAP 5-325MG [Wilber 5-325] 1 each PO Q4HR PRN #10 tab 01/08/25 [Rx] Follow up Appointment(s)/Referral(s): [facility],Clinic [REFERRING] - 1-2 Days (Please call [facility] to ask about status of home health care ) John Somers DO [Doctor of Osteopathic Medicine] - 01/24/25 10:15 am Patient Instructions/Handouts: Femoropopliteal Bypass (DC) Activity/Diet/Wound Care/Special Instructions: No driving until cleared by surgeon. Avoid heavy lifting greater than 10 lbs , pushing, pulling, straining, flights of stairs for 2 weeks. Sponge bath only until right Prevena wound dressing removed. Then ok to shower but no baths, pools, soaking in tubs until cleared by surgeon to avoid risk of infection. signs of infection ie: fever, rash, drainage from surgical site, swelling contact doctor or return to ER immediately. Heavy bleeding from surgical site apply firm direct pressure and return to ER. Do not attempt to drive self. low sodium/low fat diet Keep Prevena wound VAC dressing in place to right groin until 01/13/2025. Then may remove and throw away. Discharge Disposition: HOME WITH HOME HEALTH SERVICES
[2025-01-08] MEDS: ACETAMINOPHEN TAB 500 MG TAB PO SCH (21:31)
[2025-01-08] MEDS: LOSARTAN 50 MG TAB PO SCH (21:31)
[2025-01-08] MEDS: ATORVASTATIN 80 MG TAB PO SCH (21:31)
[2025-01-09 03:34] VITALS: RESP 16
[2025-01-09 08:35] VITALS: BP 173/76; PULSE 72; TEMP 98.3
--- NOTE | 2025-01-09 18:29 | P.PN ---
Subjective Progress Note Date: 01/09/25 Hospital course: Patient is a pleasant 84-year-old male with a past medical history of CAD status post CABG x 4, hypertension, hyperlipidemia, carotid stenosis status post carotid endarterectomy, peripheral vascular disease status post stenting of right leg and renal artery stent placement, and hearing loss. Patient is currently admitted under vascular surgery team and underwent right common femoral thromboendarterectomy with right femoral to popliteal bypass graft utilizing cryopreserved vein and application of Prevena wound VAC on 01/07/2025. Physical exam: Patient seen and fully evaluated at bedside this morning. He appeared to be doing well. He is postoperative day 2. Wound VAC remains in place to right groin and dressing just changed to right medial lower leg and currently clean, dry, and intact. Patient reports significant improvement of pain over the past 24 hours and reports that he feels ready to go home Vital signs reviewed and stable. General: Nontoxic, no distress and appears stated age. Derm: Skin warm and dry, normal coloration for ethnicity. Head: Atraumatic, normocephalic and symmetric. Eyes: EOM's intact, no lid lag, and anicteric sclera Mouth: no lip lesions, mucus membranes moist Cardiovascular: regular rate and rhythm with normal S1S2, systolic murmur, positive posterior tibial pulses bilaterally, and cap refill < 2 seconds. Prevena Wound VAC in place right groin, no surrounding erythema or hematoma noted. Dressing in place right medial lower leg, clean, dry, and intact. Lungs: Respirations even, regular, and unlabored on room air. Lungs CTA bilaterally, no rhonchi, no rales, no wheezing, and no accessory muscle usage. Abdominal: soft, nontender to palpation, no guarding, no appreciable organomegaly Ext: ROM intact. No gross muscle atrophy, no edema, no contractures Neuro: Speech clear, face symmetrical and CN II-XII grossly intact with no noted focal neuro deficits Psych: Alert and oriented to person, place, time, and situation. Appropriate and pleasant affect. Assessment and Plan of Care: Status post right common femoral thromboendarterectomy with right femoral to popliteal bypass graft utilizing cryopreserved vein and application of Prevena wound VAC Peripheral vascular disease -Management per primary admitting vascular surgery team including DVT prophylaxis, pain management, management of wound VAC, advancement of activity, and PT/OT. -Continue dual antiplatelet therapy with aspirin 81 mg daily and Plavix 75 mg daily along with atorvastatin 80 mg nightly. -Symptomatic care and pain management. -Telemetry monitoring -PT/OT following, recommending home with home care. Required documents com pleted for [place] home care. - Discussed plan of care with vascular surgery ASTROBIOLOGIST who reports plans for dis charge later today. History of CAD status post CABG x 4 Hypertension Hyperlipidemia Carotid stenosis status post carotid endarterectomy -Continue cardiac medication regimen with amlodipine 5 mg daily, aspirin 81 mg daily, atorvastatin 80 mg nightly, Plavix 75 mg daily, losartan 50 mg nightly, and metoprolol 12.5 mg daily. BPH -Monitor urinary output and for any signs of urinary retention. Continue Flomax 0.4 mg daily. Data and imaging reviewed: -Labs reviewed. CBC showing no significant abnormalities. Coagulation profile normal findings. BMP showing mild prerenal azotemia with BUN of 21 otherwise normal findings. Blood glucose 102. Liver profile unremarkable. Calcium 9.8. -Reviewed operative report. -Vital signs reviewed. Blood pressure 173/76, heart rate 72, respiratory rate 16, temp 98.3 F, and SpO2 of 96% on room air. Thank you for allowing us to participate in the care of this pleasant patient. Do not hesitate to contact us with questions. Someone can be reached from the [facility] hospitalist group all hours of the day at [phone] or via [employer]. Patient was seen independently by Nurse Pracitioner. This document was prepared using [employer] dictation software. Please allow for errors in tipple operator, while rare they do occur. Hilario Spain NP rendered care for this patient independently, reviewed the findings and plan as documented in the note above and agree with plan. I did not physically speak with or examine the patient on this date. Objective - Vital Signs Vital signs: Vital Signs Temp 97.7 F 01/08/25 20:00 Pulse 55 L 01/09/25 03:33 Resp 16 01/09/25 03:33 BP 163/79 01/09/25 03:33 Pulse Ox 96 01/09/25 03:33 FiO2 Intake & Output 01/08/25 01/09/25 01/09/25 18:59 06:59 18:59 Intake Total 354 360 Output Total 400 Balance 354 -40 Intake: Oral 354 360 Output: Urine 400 Other: Voiding Method Indwelling Catheter # Voids 1 - Labs CBC & Chem 7: 01/07/25 06:00 01/07/25 06:00
== END 2025-01-09 10:15 | disposition home health service (06) | DRG 272 ==
LOC: 2ORMAIN 01-07 05:33 → 3SCARD 01-07 17:41
PROVIDERS: ADMIT Surgery; ATTEND Surgery
PROC: 04CK3ZZ Extirpation of Matter from Right Femoral Artery, Percutaneous Approach (ICD-10-PCS; 2025-01-07)
PROC: 041K09L Bypass Right Femoral Artery to Popliteal Artery with Autologous Venous Tissue, Open Approach (ICD-10-PCS; principal; 2025-01-07 07:30)
DX: I70.211 Atherosclerosis of native arteries of extremities with intermittent claudication, right leg (principal); E78.5 Hyperlipidemia, unspecified; I10 Essential (primary) hypertension; I70.8 Atherosclerosis of other arteries; I25.2 Old myocardial infarction; H91.90 Unspecified hearing loss, unspecified ear; I25.10 Atherosclerotic heart disease of native coronary artery without angina pectoris; N52.9 Male erectile dysfunction, unspecified; Z79.82 Long term (current) use of aspirin; Z79.899 Other long term (current) drug therapy; N40.0 Benign prostatic hyperplasia without lower urinary tract symptoms; Z86.13 Personal history of malaria; Z87.891 Personal history of nicotine dependence; Z95.1 Presence of aortocoronary bypass graft; Z95.5 Presence of coronary angioplasty implant and graft; Z95.820 Peripheral vascular angioplasty status with implants and grafts; Z97.4 Presence of external hearing-aid
CPT/HCPCS: 80053; 85025; 85610; 85730; 86850; 86900; 86901